=== PATIENT | female | born 1965 | race Caucasian/White ===

== ENCOUNTER 2018-07-27 16:51 | Emergency (ER) | payer MEDICARE ==
[~2018-07-27] VITALS: Ht 180.3 cm; Wt 46.7 kg
[~2018-07-27 16:51] MED LIST: AMIT25; BUDE6HFA; Bactrim Ds Tab1 EACH PO; HYDACE10B; KEFLEX PO; Norco 5-325 Ta1 EACH PO; OMEPRAZOLE DR 20 MG; PREG100; PROM25; Paxil40 MG; Percocet 5-3251 EACH PO; TRAZ50 PO; Zofran Odt4 MG SL
[2018-07-27 17:38] LABS: Source, Urine Clean Catch
[2018-07-27 17:48] LABS: Appearance, Urine Clear (Clear); Bilirubin, Urine Neg (Neg); Blood, Urine Neg (Neg); Color, Urine Yellow (P-Yellow); Glucose Qualitative, Urine Neg (Neg); Ketones, Urine Neg (Neg); Leukocyte Esterase, Urine 1+ (Neg); Nitrite, Urine Neg (Neg); Protein, Urine Neg (Neg); Urobilinogen, Urine NORM (Normal)
[2018-07-27 18:15] LABS: Squamous Epithelial Cells Mod /hpf (Few)
[2018-07-27 18:16] LABS: Bacteria Rare /hpf; Red Blood Cells, Urine Not Seen /hpf (0-2)
[2018-07-27] MEDS ORDERED: NYST237S MT (19:18)
[2018-07-27] MEDS ORDERED: Zovirax800 MG PO (19:18)
[2018-07-27] MEDS ORDERED: KETO10 PO (19:18)
== END 2018-07-27 19:29 | disposition home or self-care (01) ==
LOC: ER 16:51
PROVIDERS: Physician Assistant
DX: B00.2 Herpesviral gingivostomatitis and pharyngotonsillitis (principal); Z88.5 Allergy status to narcotic agent; Z88.0 Allergy status to penicillin; Z79.899 Other long term (current) drug therapy; F17.200 Nicotine dependence, unspecified, uncomplicated
CPT/HCPCS: 76770; 81001; 87086; 99284-25

== ENCOUNTER 2018-08-31 11:11 | Emergency (ER) | payer MEDICARE, OTHER ==
[~2018-08-31] VITALS: Ht 154.9 cm; Wt 52.2 kg
[~2018-08-31 11:11] MED LIST changes: +KETO10 PO; +NYST237S MT; -PREG100; +PREG300 PO; +Zovirax800 MG PO
[2018-08-31] MEDS ORDERED: Cymbalta60 MG PO (11:41)
[2018-08-31] MEDS ORDERED: Cleocin HCl300 MG PO (11:57)
[2018-08-31] MEDS ORDERED: Zovirax400 MG PO (11:57)
[2018-08-31] MEDS ORDERED: IBU800 MG PO (11:57)
== END 2018-08-31 11:59 | disposition home or self-care (01) ==
LOC: ER 11:11
DX: K04.7 Periapical abscess without sinus (principal); B00.2 Herpesviral gingivostomatitis and pharyngotonsillitis
CPT/HCPCS: 99282

== ENCOUNTER → 2019-11-07 | Outpatient (CLI) | payer MEDICARE, OTHER ==
[~2019-11-07] MED LIST changes: +Cleocin HCl300 MG PO; +Cymbalta60 MG PO; +IBU800 MG PO; +Zovirax400 MG PO
[2019-11-07 18:42] LABS: BASOPHILS ABSOLUTE AUTO 0.08 K/mm3 (0.00-0.23); BASOPHILS PERCENT AUTO 1 % (0-2); EOSINOPHILS ABSOLUTE AUTO 0.22 K/mm3 (0.00-0.68); EOSINOPHILS PERCENT AUTO 3 % (0-6); Hematocrit 41.7 % (33.0-51.0); Hemoglobin 12.8 g/dL (11.5-16.0); IMMATURE GRAN ABSOLUTE AUTO 0.02 K/mm3 (0.00-0.10); IMMATURE GRAN PERCENT AUTO 0 % (0-1); LYMPHOCYTES ABSOLUTE AUTO 2.17 K/mm3 (0.84-5.20); LYMPHOCYTES PERCENT AUTO 28 % (21-46); MONOCYTES ABSOLUTE AUTO 0.41 K/mm3 (0.16-1.47); MONOCYTES PERCENT AUTO 5 % (4-13); Mean Corpuscular HGB 29.4 pg (26.0-34.0); Mean Corpuscular HGB Conc 30.7 g/dL (31.5-36.5); Mean Corpuscular Volume 96 fL (80-100); Mean Platelet Volume 9.5 fL (9.1-12.4); NEUTROPHILS ABSOLUTE AUTO 4.84 K/mm3 (1.96-9.15); NEUTROPHILS PERCENT AUTO 63 % (41-73); Platelet Count 310 K/mm3 (150-400); RDW Coefficient Variation 14.1 % (11.7-14.2); RDW Standard Deviation 50.4 fL (35.1-46.3); Red Blood Cell Count 4.35 M/mm3 (3.80-5.20); White Blood Cell Count 7.74 K/mm3 (4.00-11.30)
[2019-11-07 18:52] LABS: Albumin, Blood 4.1 g/dL (3.4-5.0); Albumin/Globulin Ratio 1.1 (0.8-1.8); Bilirubin, Total 0.4 mg/dL (0.1-1.0); Bun/Creatinine Ratio 16.4 (12.0-20.0); Creatinine, Blood 1.22 mg/dL (0.40-1.00); Globulin, Blood 3.8 g/dL (2.2-4.0); Potassium, Blood 4.4 mmol/L (3.5-5.5); Total Protein, Blood 7.9 g/dL (6.4-8.2)
[2019-11-07 19:26] LABS: Lithium 0.63 mmol/L (0.60-1.20)
== END ==
LOC: LAB EV 18:35 → LAB SHORT 18:35
PROVIDERS: Emergency Medicine
DX: F31.9 Bipolar disorder, unspecified (principal)
CPT/HCPCS: 80053; 80178; 85025

== ENCOUNTER 2019-12-05 23:52 | Emergency (ER) | payer MEDICARE, OTHER ==
[~2019-12-05] VITALS: Ht 154.9 cm; Wt 65.8 kg
[2019-12-06 00:11] LABS: BASOPHILS ABSOLUTE AUTO 0.06 K/mm3 (0.00-0.23); BASOPHILS PERCENT AUTO 1 % (0-2); EOSINOPHILS PERCENT AUTO 3 % (0-6); Hematocrit 42.7 % (33.0-51.0); IMMATURE GRAN ABSOLUTE AUTO 0.02 K/mm3 (0.00-0.10); IMMATURE GRAN PERCENT AUTO 0 % (0-1); LYMPHOCYTES ABSOLUTE AUTO 2.91 K/mm3 (0.84-5.20); LYMPHOCYTES PERCENT AUTO 38 % (21-46); MONOCYTES ABSOLUTE AUTO 0.46 K/mm3 (0.16-1.47); MONOCYTES PERCENT AUTO 6 % (4-13); Mean Corpuscular HGB 28.6 pg (26.0-34.0); Mean Corpuscular HGB Conc 30.4 g/dL (31.5-36.5); Mean Corpuscular Volume 94 fL (80-100); Mean Platelet Volume 9.3 fL (9.1-12.4); NEUTROPHILS ABSOLUTE AUTO 4.05 K/mm3 (1.96-9.15); NEUTROPHILS PERCENT AUTO 53 % (41-73); Platelet Count 314 K/mm3 (150-400); RDW Coefficient Variation 12.9 % (11.7-14.2); RDW Standard Deviation 44.4 fL (35.1-46.3); Red Blood Cell Count 4.55 M/mm3 (3.80-5.20)
[2019-12-06 00:28] LABS: Source, Urine Clean Catch
[2019-12-06 00:30] LABS: Alanine Aminotransfer (ALT/SGP 27 U/L (12-78); Albumin, Blood 3.8 g/dL (3.4-5.0); Alk Phos 101 U/L (50-136); Anion Gap 3 mmol/L (6-16); Aspartate Aminotrans (AST/SGOT 23 U/L (12-37); Bilirubin, Total 0.5 mg/dL (0.1-1.0); Blood Urea Nitrogen 19 mg/dL (8-24); Bun/Creatinine Ratio 21.1 (12.0-20.0); CO2, Blood 31 mmol/L (21-32); Chloride, Blood 108 mmol/L (98-108); Ethanol (Alcohol), Blood, Med <3 mg/dL; Globulin, Blood 3.7 g/dL (2.2-4.0); Glomerular Filtration Rate >60 (60-); Glucose, Blood 111 mg/dL (70-99); Potassium, Blood 3.9 mmol/L (3.5-5.5); Salicylate <1.7 mg/dL (2.8-20.0); Sodium, Blood 142 mmol/L (136-145); Total Protein, Blood 7.5 g/dL (6.4-8.2)
[2019-12-06 00:33] LABS: Bilirubin, Urine Neg (Neg); Blood, Urine Neg (Neg); Glucose Qualitative, Urine Neg (Neg); Ketones, Urine Neg (Neg); Leukocyte Esterase, Urine Neg (Neg); Nitrite, Urine Neg (Neg); Protein, Urine Neg (Neg); Urobilinogen, Urine NORM (Normal)
[2019-12-06 00:34] LABS: Appearance, Urine Clear (Clear); Color, Urine Yellow (P-Yellow)
[2019-12-06 00:35] LABS: Acetaminophen, Random <2.0 ug/mL (10.0-30.0)
[2019-12-06 00:50] LABS: U Amphetamine Screen Not Detected; U Barbituate Screen Not Detected; U Benzodiazapine Screen Not Detected; U Buprenorphine Screen Not Detected; U Cannabinoids Screen Not Detected; U Cocaine Screen Not Detected; U Methadone Screen Not Detected; U Methamphetamine Screen Not Detected; U Opiates Screen Not Detected; U Oxycodone Screen Not Detected; U Phencyclidine Screen Not Detected; U Propoxyphene Screen Not Detected
== END 2019-12-06 02:51 | disposition home or self-care (01) ==
LOC: ER 23:52
PROVIDERS: Emergency Medicine
DX: R41.82 Altered mental status, unspecified (principal); F32.9 Major depressive disorder, single episode, unspecified; J44.9 Chronic obstructive pulmonary disease, unspecified; F41.0 Panic disorder [episodic paroxysmal anxiety]; Z88.0 Allergy status to penicillin; Z79.899 Other long term (current) drug therapy; F17.200 Nicotine dependence, unspecified, uncomplicated
CPT/HCPCS: 70450; 80053; 81003; 81025; 85025; 93005; 93010; 99284-25; G0480

== ENCOUNTER 2020-12-25 08:33 | Emergency (ER) | payer MEDICARE ==
[~2020-12-25] VITALS: Ht 154.9 cm; Wt 74.8 kg
[~2020-12-25 08:33] MED LIST changes: +AIRDUO RESPICL1 EAC4 INH; +ATEN25 PO; +Abilify2 MG PO; +CLON.5 PO; +Catapres0.2 MG PO; +LITH300C PO; +METPHE5 PO; +PREGABALIN150 MG PO; +PROM25 PO; +TIZA4 PO; +VENL25 PO
[2020-12-25] MEDS ORDERED: TRAZ50 PO (08:54)
[2020-12-25] MEDS ORDERED: ATOM60 PO (08:54)
[2020-12-25] MEDS ORDERED: SERT100 PO (08:54)
[2020-12-25] MEDS ORDERED: HYDPAM50 PO (08:54)
[2020-12-25 10:22] LABS: Source, Urine Clean Catch
[2020-12-25 10:43] LABS: Appearance, Urine Clear (Clear); Bilirubin, Urine Neg (Neg); Blood, Urine Neg (Neg); Color, Urine Yellow (P-Yellow); Glucose Qualitative, Urine Neg (Neg); Ketones, Urine Neg (Neg); Leukocyte Esterase, Urine 2+ (Neg); Nitrite, Urine Neg (Neg); Protein, Urine 2+ (Neg); Urobilinogen, Urine NORM (Normal)
[2020-12-25 10:47] LABS: Alanine Aminotransfer (ALT/SGP 18 U/L (12-78); Albumin, Blood 3.6 g/dL (3.4-5.0); Albumin/Globulin Ratio 0.9 (0.8-1.8); Alk Phos 100 U/L (50-136); Anion Gap 2 mmol/L (6-16); Aspartate Aminotrans (AST/SGOT 35 U/L (12-37); BASOPHILS ABSOLUTE AUTO 0.03 K/mm3 (0.00-0.23); BASOPHILS PERCENT AUTO 1 % (0-2); Bilirubin, Total 0.8 mg/dL (0.1-1.0); Blood Urea Nitrogen 18 mg/dL (8-24); CO2, Blood 30 mmol/L (21-32); Calcium, Blood 8.5 mg/dL (8.5-10.1); Chloride, Blood 105 mmol/L (98-108); Creatinine, Blood 0.69 mg/dL (0.40-1.00); EOSINOPHILS ABSOLUTE AUTO 0.19 K/mm3 (0.00-0.68); EOSINOPHILS PERCENT AUTO 4 % (0-6); Globulin, Blood 3.8 g/dL (2.2-4.0); Glomerular Filtration Rate >60 (60-); Glucose, Blood 94 mg/dL (70-99); Hematocrit 42.3 % (33.0-51.0); Hemoglobin 13.8 g/dL (11.5-16.0); IMMATURE GRAN ABSOLUTE AUTO 0.02 K/mm3 (0.00-0.10); IMMATURE GRAN PERCENT AUTO 0 % (0-1); LYMPHOCYTES ABSOLUTE AUTO 1.82 K/mm3 (0.84-5.20); LYMPHOCYTES PERCENT AUTO 40 % (21-46); MONOCYTES ABSOLUTE AUTO 0.29 K/mm3 (0.16-1.47); MONOCYTES PERCENT AUTO 6 % (4-13); Mean Corpuscular HGB 28.7 pg (26.0-34.0); Mean Corpuscular HGB Conc 32.6 g/dL (31.5-36.5); Mean Corpuscular Volume 88 fL (80-100); NEUTROPHILS ABSOLUTE AUTO 2.19 K/mm3 (1.96-9.15); NEUTROPHILS PERCENT AUTO 48 % (41-73); Potassium, Blood 4.7 mmol/L (3.5-5.5); RDW Coefficient Variation 13.9 % (11.7-14.2); RDW Standard Deviation 44.8 fL (35.1-46.3); Red Blood Cell Count 4.81 M/mm3 (3.80-5.20); Sodium, Blood 137 mmol/L (136-145); Total Protein, Blood 7.4 g/dL (6.4-8.2); White Blood Cell Count 4.54 K/mm3 (4.00-11.30)
[2020-12-25 10:49] LABS: Mean Platelet Volume 11.4 fL (9.1-12.4); Platelet Count 165 K/mm3 (150-400)
[2020-12-25 11:08] LABS: Mucus Mod (0-Heavy)
[2020-12-25 11:09] LABS: Red Blood Cells, Urine 0-2 /hpf (0-2); Squamous Epithelial Cells Mod /hpf (Few)
[2020-12-25 11:10] LABS: Bacteria Rare /hpf
[2020-12-25] MEDS ORDERED: NAPR500 PO (11:19)
== END 2020-12-25 11:40 | disposition home or self-care (01) ==
LOC: ER 08:33
PROVIDERS: Emergency Medicine
DX: M76.62 Achilles tendinitis, left leg (principal); G89.29 Other chronic pain; R10.9 Unspecified abdominal pain; F17.200 Nicotine dependence, unspecified, uncomplicated; Z79.899 Other long term (current) drug therapy
CPT/HCPCS: 73610; 80053; 81001; 85025; 87086; 99283-25

== ENCOUNTER 2021-06-01 15:15 | Inpatient (IN) | payer OTHER ==
[~2021-06-01] VITALS: Ht 154.9 cm; Wt 69.4 kg
[~2021-06-01 15:15] MED LIST changes: +ATOM60 PO; +HYDPAM50 PO; +NAPR500 PO; +SERT100 PO
[2021-06-01 16:19] LABS: Source, Urine Clean Catch
[2021-06-01 16:24] LABS: BASOPHILS ABSOLUTE AUTO 0.02 K/mm3 (0.00-0.23); BASOPHILS PERCENT AUTO 0 % (0-2); EOSINOPHILS ABSOLUTE AUTO 0.14 K/mm3 (0.00-0.68); EOSINOPHILS PERCENT AUTO 3 % (0-6); Hematocrit 42.6 % (33.0-51.0); Hemoglobin 13.8 g/dL (11.5-16.0); IMMATURE GRAN ABSOLUTE AUTO 0.01 K/mm3 (0.00-0.10); IMMATURE GRAN PERCENT AUTO 0 % (0-1); LYMPHOCYTES ABSOLUTE AUTO 1.82 K/mm3 (0.84-5.20); LYMPHOCYTES PERCENT AUTO 33 % (21-46); MONOCYTES ABSOLUTE AUTO 0.46 K/mm3 (0.16-1.47); MONOCYTES PERCENT AUTO 8 % (4-13); Mean Corpuscular HGB 29.7 pg (26.0-34.0); Mean Corpuscular HGB Conc 32.4 g/dL (31.5-36.5); Mean Corpuscular Volume 92 fL (80-100); Mean Platelet Volume 9.9 fL (9.1-12.4); NEUTROPHILS ABSOLUTE AUTO 3.11 K/mm3 (1.96-9.15); NEUTROPHILS PERCENT AUTO 56 % (41-73); Platelet Count 145 K/mm3 (150-400); RDW Standard Deviation 43.8 fL (35.1-46.3); Red Blood Cell Count 4.65 M/mm3 (3.80-5.20); White Blood Cell Count 5.56 K/mm3 (4.00-11.30)
[2021-06-01 16:29] LABS: Appearance, Urine Clear (Clear); Bilirubin, Urine Neg (Neg); Blood, Urine Neg (Neg); Color, Urine Yellow (P-Yellow); Glucose Qualitative, Urine Neg (Neg); Ketones, Urine Neg (Neg); Leukocyte Esterase, Urine 1+ (Neg); Nitrite, Urine Neg (Neg); Protein, Urine 1+ (Neg); Urobilinogen, Urine NORM (Normal)
[2021-06-01 16:45] LABS: Alanine Aminotransfer (ALT/SGP 22 U/L (12-78); Albumin, Blood 3.9 g/dL (3.4-5.0); Albumin/Globulin Ratio 1.2 (0.8-1.8); Alk Phos 78 U/L (50-136); Anion Gap 2 mmol/L (6-16); Aspartate Aminotrans (AST/SGOT 17 U/L (12-37); Bilirubin, Total 0.5 mg/dL (0.1-1.0); Blood Urea Nitrogen 18 mg/dL (8-24); Bun/Creatinine Ratio 27.5 (12.0-20.0); CO2, Blood 34 mmol/L (21-32); Calcium, Blood 9.1 mg/dL (8.5-10.1); Chloride, Blood 103 mmol/L (98-108); Creatinine, Blood 0.65 mg/dL (0.40-1.00); Globulin, Blood 3.2 g/dL (2.2-4.0); Glomerular Filtration Rate >60 (60-); Glucose, Blood 78 mg/dL (70-99); Potassium, Blood 4.2 mmol/L (3.5-5.5); Sodium, Blood 139 mmol/L (136-145); Total Protein, Blood 7.1 g/dL (6.4-8.2)
[2021-06-01 16:50] LABS: Bacteria Mod /hpf; Red Blood Cells, Urine Not Seen /hpf (0-2); Squamous Epithelial Cells Few /hpf (Few); White Blood Cells, Urine 0-2 /hpf (0-5)
[2021-06-01] MEDS ORDERED: BUSP5 PO (20:05)
[2021-06-01 20:25] LABS: Influenza A, PCR NEGATIVE (NEGATIVE); Influenza B, PCR NEGATIVE (NEGATIVE); Resp Syncytial Virus, PCR NEGATIVE (NEGATIVE); SARS-Cov-2 (COVID-19) PCR, MMC NEGATIVE (NEGATIVE)
--- NOTE | 2021-06-02 06:06 | NUR ---
VSS. LS C. PAIN TO L LOWER ABD QUADRANT-MANAGED W/ PRN PAIN MEDS. NPO. NGT IN PLACE, HOOKED TO WALL SUCTION. IV FLUIDS RUNNING. SBA TO BSC. RA 92% ON ADMIT. AT APPROX 0430, RA AT 82 % (PT STATES THIS IS A CHRONIC ISSUE), PT PLACED ON 2L O2 NC, O2 SAT UP TO 94%. SURGERY CONSULTED. WOULD LIKE HOME MEDS ORDERED, WILL PASS ON TO DAYSHIFT RN. NO ISSUES OVERNIGHT. WILL CONTINUE TO MONITOR
--- NOTE | 2021-06-02 18:36 | NUR ---
PATIENT IS CURRENTLY LYING IN BED WITH NO SIGNS OR SYMPTOMS ACUTE DISTRESS NOTED. CALL LIGHT AND WATER IN EASY REACH. PATIENT HAS A COUGH THAT IS PRODUCTIVE. NGT REMOVED THIS AM AT [address] ZAMUDIO. PATIENT TOLERATED WELL. BOWEL SOUNDS HYPOACTIVE. SUPPOSITORY AND MIRALAX GIVEN. PATIENT HAS HAD NO COMPLAINTS OF NAUSEA TODAY. MEDICATED FOR COMPLAINTS OF LLQ PAIN-SEE EMAR. WILL MONITOR.
--- NOTE | 2021-06-03 06:21 | NUR ---
VSS. +COUGH THROUGHOUT SHIFT. LS C. PHLEGM SOUNDS THOUGH ONLY IN THROAT. 2L O2 NC. SBA TO BSC. PT OCCASIONALLY APPEARS CONFUSED, WILL CALL OUR "MAMA, HELP ME". RN BEGAN ASKING IF SHE WAS OKAY AND IF PT KNEW WHERE SHE WAS, PT APPEARED TO BECOME IMMEDIATELY ORIENTED. +ORTEGA. DR MCDOWELL NOTIFIED AT 2124. ACETAMINOPHEN PRN ORDERED. GIVEN X1. NO BM. NO FLATUS PER PT. ABD SOFT. MINIMAL PAIN TO L LOWER ABD QUADRANT. PHYSICIAN AT BEDSIDE THIS AM. UPDATED PT ON POC TO MONITOR RETURN OF BOWEL FUNCTION AND CONTINUE CLEAR LIQUID DIET.
[2021-06-03] MEDS ORDERED: Acetaminophen325 M1 PO (09:41)
[2021-06-03] MEDS ORDERED: DOCU100 PO (09:41)
--- NOTE | 2021-06-03 09:59 | NUR ---
DISCHARGE: DISCHARGE INSTUCTIONS GIVEN TO PATIENT AT THIS TIME. PATIENT VERBALIZED UNDERSTANDING. PATIENT ENCOURAGED TO DRINK PLENTY OF FLUIDS, TAKE STOOL SOFTNERS ORDERED AND MAKE AND KEEP FOLLOW UP APPOINTMENTS. PATIENT HAS HAD BOWEL MOVEMENT THIS AM AND IN PASSING GAS. NO SIGNS OR SYPTOMS ACUTE DISTRESS NOTED. ABLE TO MAKE NEEDS AND WANTS KNOWN. WILL MONITOR.
== END 2021-06-03 10:00 | disposition home or self-care (01) | DRG 390 ==
LOC: ER 15:15 → SURS 15:16
PROVIDERS: Emergency Medicine; ADMIT Surgery
PROC: 0D9670Z Drainage of Stomach with Drainage Device, Via Natural or Artificial Opening (ICD-10-PCS; principal; 2021-06-01)
DX: K56.609 Unspecified intestinal obstruction, unspecified as to partial versus complete obstruction (principal); Z20.822 Contact with and (suspected) exposure to COVID-19; J44.9 Chronic obstructive pulmonary disease, unspecified; M79.7 Fibromyalgia; F32.A Depression, unspecified; F41.9 Anxiety disorder, unspecified; Z28.21 Immunization not carried out because of patient refusal; G89.29 Other chronic pain; F43.10 Post-traumatic stress disorder, unspecified; Z88.0 Allergy status to penicillin; Z79.899 Other long term (current) drug therapy; Z98.890 Other specified postprocedural states; Z87.891 Personal history of nicotine dependence
CPT/HCPCS: 0241U; 36415; 74177; 80053; 81001; 83690; 85025; 87086; 96365; 96375; 96376; 99285-25; A9270; G0378; J1170; J1650; J2270; J2405; J3480; J7030; Q9967

== ENCOUNTER 2022-01-13 10:53 | Emergency (ER) | payer MEDICARE, OTHER ==
[~2022-01-13] VITALS: Ht 154.9 cm; Wt 65.8 kg
[~2022-01-13 10:53] MED LIST changes: +Acetaminophen325 M1 PO; +BUSP5 PO; +CATAPRES0.1 MG PO; +DOCU100 PO; +PROP10
[2022-01-13] MEDS ORDERED: MELOXICAM5 MG (11:08)
[2022-01-13] MEDS ORDERED: LIDO700A20 TOP (13:19)
[2022-01-13] MEDS ORDERED: Prednisone20 MG PO (13:19)
== END 2022-01-13 13:43 | disposition home or self-care (01) ==
LOC: ER 10:53
DX: S39.012A Strain of muscle, fascia and tendon of lower back, initial encounter (principal); J44.9 Chronic obstructive pulmonary disease, unspecified; F17.290 Nicotine dependence, other tobacco product, uncomplicated; X58.XXXA Exposure to other specified factors, initial encounter
CPT/HCPCS: 72100

== ENCOUNTER 2022-01-15 19:10 | Emergency (ER) | payer MEDICARE, OTHER ==
[~2022-01-15] VITALS: Ht 154.9 cm; Wt 47.2 kg
[~2022-01-15 19:10] MED LIST changes: +LIDO700A20 TOP; +MELOXICAM5 MG; +Prednisone20 MG PO
== END 2022-01-15 22:16 | disposition home or self-care (01) ==
LOC: ER 19:10
DX: Z04.89 Encounter for examination and observation for other specified reasons (principal); J44.9 Chronic obstructive pulmonary disease, unspecified; Z87.891 Personal history of nicotine dependence; Z79.899 Other long term (current) drug therapy; W19.XXXA Unspecified fall, initial encounter
CPT/HCPCS: 70450

== ENCOUNTER 2022-01-19 12:08 | Inpatient (IN) | payer MEDICARE, OTHER ==
[~2022-01-19] VITALS: Ht 154.9 cm; Wt 74.6 kg
[2022-01-19 12:38] LABS: Source, Urine Straight Cath
[2022-01-19 12:42] LABS: Appearance, Urine Cloudy (Clear); Blood, Urine 3+ (Neg); Color, Urine Amber (P-Yellow); Glucose Qualitative, Urine Neg (Neg); Ketones, Urine Neg (Neg); Leukocyte Esterase, Urine 2+ (Neg); Nitrite, Urine Neg (Neg); Protein, Urine 2+ (Neg); Specific Gravity, Urine 1.015 (1.003-1.022); Urobilinogen, Urine 4+ (Normal)
[2022-01-19 12:45] LABS: Hematocrit 42.7 % (33.0-51.0); Hemoglobin 15.1 g/dL (11.5-16.0); Mean Corpuscular HGB 29.4 pg (26.0-34.0); Mean Corpuscular HGB Conc 35.4 g/dL (31.5-36.5); Mean Corpuscular Volume 83 fL (80-100); NRBC ABSOLUTE 0.36 K/mm3 (0.00-0.02); NRBC Auto 1.5 /100 WBC (0.0-0.2); Platelet Count 112 K/mm3 (150-400); RDW Coefficient Variation 13.3 % (11.7-14.2); RDW Standard Deviation 40.2 fL (35.1-46.3); Red Blood Cell Count 5.14 M/mm3 (3.80-5.20); White Blood Cell Count 24.17 K/mm3 (4.00-11.30)
[2022-01-19 12:52] LABS: CPK Creatine Kinase 451 U/L (26-193); Ethanol (Alcohol), Blood, Med <3 mg/dL; Salicylate 7.7 mg/dL (2.8-20.0)
[2022-01-19 12:52] LABS: Bilirubin, Urine 2+ (Neg)
[2022-01-19 12:54] LABS: Alanine Aminotransfer (ALT/SGP 43 U/L (12-78); Albumin, Blood 1.7 g/dL (3.4-5.0); Albumin/Globulin Ratio 0.4 (0.8-1.8); Alk Phos 124 U/L (50-136); Anion Gap 16 mmol/L (6-16); Aspartate Aminotrans (AST/SGOT 157 U/L (12-37); Bilirubin, Total 1.8 mg/dL (0.1-1.0); Blood Urea Nitrogen 113 mg/dL (8-24); Bun/Creatinine Ratio 49.1 (12.0-20.0); CO2, Blood 24 mmol/L (21-32); Calcium, Blood 8.5 mg/dL (8.5-10.1); Chloride, Blood 99 mmol/L (98-108); Globulin, Blood 4.5 g/dL (2.2-4.0); Glomerular Filtration Rate 24 (60-); Glucose, Blood 83 mg/dL (70-99); Potassium, Blood 3.5 mmol/L (3.5-5.5); Sodium, Blood 139 mmol/L (136-145); Total Protein, Blood 6.2 g/dL (6.4-8.2)
[2022-01-19 12:55] LABS: Acetaminophen, Random <2.0 ug/mL (10.0-30.0)
[2022-01-19 12:56] LABS: Bacteria Many /hpf; Red Blood Cells, Urine 0-2 /hpf (0-2); Squamous Epithelial Cells Rare /hpf (Few); Transitional Epithelial Cells Rare /hpf (0-Rare)
[2022-01-19 13:13] LABS: BAND PERCENT MAN 5 % (0-8); BASOPHILS PERCENT MAN 0 % (0-2); EOSINOPHILS PERCENT MAN 0 % (0-6); LYMPHOCYTES % ATYPICAL MANUAL 2 % (0-0); LYMPHOCYTES PERCENT MAN 10 % (21-46); MONOCYTES PERCENT MAN 5 % (4-13); NEUTROPHILS ABSOLUTE MAN 20.06 K/mm3 (1.96-9.15); SEG NEUTROPHILS PERCENT MAN 78 % (41-73); TOTAL CELLS COUNTED 100
[2022-01-19 13:16] LABS: U Amphetamine Screen DETECTED; U Barbituate Screen Not Detected; U Benzodiazapine Screen Not Detected; U Buprenorphine Screen DETECTED; U Cannabinoids Screen Not Detected; U Cocaine Screen Not Detected; U Methadone Screen Not Detected; U Methamphetamine Screen DETECTED; U Opiates Screen Not Detected; U Oxycodone Screen Not Detected; U Phencyclidine Screen Not Detected; U Propoxyphene Screen Not Detected
[2022-01-19 13:33] LABS: Influenza A, PCR NEGATIVE (NEGATIVE); Influenza B, PCR NEGATIVE (NEGATIVE); Resp Syncytial Virus, PCR NEGATIVE (NEGATIVE); SARS-Cov-2 (COVID-19) PCR, MMC NEGATIVE (NEGATIVE)
[2022-01-19 13:38] LABS: Creatine Kinase MB 16.5 ng/mL (0.0-3.6); Creatine Kinase MB Index 3.7 (0.0-4.0)
[2022-01-20 01:08] LABS: PCO2 Arterial 67.5 mmHg (35-45); PO2 Arterial 145 mmHg (80-100)
[2022-01-20 01:11] LABS: pH Blood Arterial 7.12 (7.35-7.45)
[2022-01-20 02:35] LABS: PCO2 Arterial 54.6 mmHg (35-45); PO2 Arterial 74.4 mmHg (80-100)
[2022-01-20 02:38] LABS: pH Blood Arterial 7.21 (7.35-7.45)
[2022-01-20 05:13] LABS: Hematocrit 32.5 % (33.0-51.0); Hemoglobin 10.7 g/dL (11.5-16.0); Mean Corpuscular HGB 29.1 pg (26.0-34.0); Mean Corpuscular HGB Conc 32.9 g/dL (31.5-36.5); NRBC ABSOLUTE 0.06 K/mm3 (0.00-0.02); NRBC Auto 0.5 /100 WBC (0.0-0.2); Platelet Count 70 K/mm3 (150-400); RDW Coefficient Variation 14.4 % (11.7-14.2); RDW Standard Deviation 45.8 fL (35.1-46.3); Red Blood Cell Count 3.68 M/mm3 (3.80-5.20); White Blood Cell Count 10.93 K/mm3 (4.00-11.30)
[2022-01-20 05:15] LABS: Mean Corpuscular Volume 88 fL (80-100)
[2022-01-20 05:32] LABS: Magnesium, Blood 2.6 mg/dL (1.6-2.4)
--- NOTE | 2022-01-20 05:34 | NUR ---
SHIFT SUMMARY ASSUMED CARE OF PT AT 1900. PT WAS YELLING OUT AND SAYING NONSENSICAL SENTENCES AT THE START OF SHIFT. PT WAS ON 4LNC. LUNG SOUNDS COARSE. HEART SOUNDS REGULAR. BP WAS VERY SOFT. PT BECAME MORE LEHTARGIC AND STOPPED CRYING OUT. RESIDENT CHARBEL NOTIFED AND ORDERED BOLUS. PT RESPONDED WELL BUT MAP DROPPED TO 60S AGAIN AFTER BOLUS. CHARBEL ORDERED SECOND 1000 BOLUS; IN WHICH THE SAME THING HAPPENED. AFTER THIRD BOLUS PT MAP WAS MAINTAINING IN THE 70'S BUT PT REMAINED VERY CONFUSED AND CRYING OUT. PT OXYGEN NEEDS INCREASED TO 10L HIGHFLOW. RT THOUGHT TO CHECK ABG. PH CAME BACK CRITICAL AND BIPAP WAS STARTED. PT STILL CONTINUED TO CRY OUT BUT WAS ABLE TO USE BEDPAN TO VOID AND TOLD STAFF SHE HAD A BM. PT IS MORE ALERT THIS AM AND ABLE TO SPEAK SENSICAL SENTENCES AND BE REDIRECTED. PT ASKED TO TAKE OFF BIPAP BUT WAS EDUCATED ABOUT CONTINUATION. PT HANDS ARE SWOLLEN AND RED, HOT TO TOUCH. PT ASMITTED AT START OF SHIFT THAT HER L HAND WAS THE SITE OF HER IV DRUG INJECTION. PT KNEES AND COCCYX RED BUT BLANCHABLE. PT HAS WEAK PULSES IN FEET.
[2022-01-20 05:44] LABS: Albumin/Globulin Ratio 0.6 (0.8-1.8); Bilirubin, Total 1.5 mg/dL (0.1-1.0); Bun/Creatinine Ratio 61.2 (12.0-20.0); Creatinine, Blood 1.6 mg/dL (0.40-1.00); Globulin, Blood 3.4 g/dL (2.2-4.0); Potassium, Blood 2.9 mmol/L (3.5-5.5); Total Protein, Blood 5.4 g/dL (6.4-8.2)
[2022-01-20 05:49] LABS: Calcium, Blood 6.5 mg/dL (8.5-10.1)
[2022-01-20 06:05] LABS: BAND PERCENT MAN 21 % (0-8); BASOPHILS PERCENT MAN 0 % (0-2); EOSINOPHILS PERCENT MAN 1 % (0-6); LYMPHOCYTES ABSOLUTE MAN 0.32 K/mm3 (0.84-5.20); LYMPHOCYTES PERCENT MAN 3 % (21-46); METAMYELOCYTE PERCENT MAN 1 % (0-0); MONOCYTES PERCENT MAN 1 % (4-13); MYELOCYTE ABSOLUTE MAN 0.43 K/mm3 (0.00-0.00); MYELOCYTE PERCENT MAN 4 % (0-0); NEUTROPHILS ABSOLUTE MAN 9.83 K/mm3 (1.96-9.15); SEG NEUTROPHILS PERCENT MAN 69 % (41-73); TOTAL CELLS COUNTED 100
[2022-01-20 07:10] LABS: PCO2 Arterial 53.9 mmHg (35-45); PO2 Arterial 89.7 mmHg (80-100)
[2022-01-20 07:12] LABS: pH Blood Arterial 7.22 (7.35-7.45)
[2022-01-20 07:43] LABS: Vancomycin, Random 27.4 ug/mL
--- NOTE | 2022-01-20 11:48 | NUR ---
AM NOTE: PATIENT OPENING EYES UPON PAINFUL STIMULI AND SOUND. PERRLA WITH SLUGGISH PUPIL REACTION. MOANING OUT AND SATING NONSENSICAL STATEMENTS AT TIMES. ABLE TO MAKE KNOWN WHEN SHE HAS TO GO TO THE BATHROOM. NOT USING CALL LIGHT. PALPABLE STRONG PULSES. WEAK ALL OVER, NEEDING HELP TURNING IN BED, NOT ABLE TO FOLLOW INSTRUCTIONS WHEN TURNING OR CHANGING. Q2 TURNING AND NEEDED. BIPAP IN PLACE SETTINGS 16/8 AND 30% FIO2 SATING MID 90'S. LUNGS SOUNDING CLEAR AND COARSE. OCCASIONAL COUGH. Q4 ORAL CARE AND NEEDED. PATIENT NOT AWAKE AND ALERT ENOUGH TO BE SAFELY EATING OR DRINKING. USING BED JORDAN NEEDED. INCONTINENT EPISODE THIS AM. ATTENDS IN PLACE. TELE SHOWING SINUS RHYTHM WITH HR 60-70'S. BP ON SOFTER SIDE. NS INFUSING AT 100 ML/HR. KCL INFUSING WELL. HEART SOUNDS DISTANT. SKIN OVERALL PALE WITH REDNESS TO BILATERAL KNEES, COCCYX AND RIGHT BREAST. LARGE AMOUNT OF BRUISING TO RIGHT BREAST WITH RED SCRATCH LIKE DIAZ. LEFT HAND RED/WARM/SWOLLEN PER PLANT GUARD, PATIENT STATES SHE INJECTED METH AT THIS LOCATION. BILATERAL HANDS AND FEET EDEMATOUS. SLEEPING AT THIS TIME. WILL CONTINUE TO MONITOR.
--- NOTE | 2022-01-20 12:28 | NUR ---
UPDATE: SPOKE WITH DR. HEWITT REGARDING PATIENT AND PROVIDED UPDATE ON THIS RN CONCERNS WITH AGB/MENTATION, LEFT HAND REDNESS/SWELLING/WARMTH, AND POSSIBLE NEED FOR DORAN. NO NEW ORDERS FOR THIS RN AT THIS TIME. PATIENT SLEEPING WITH BIPAP IN PLACE. BP REMAINS ON SOFTER SIDE. Q2 TURNING AND NEEDED. PATIENT NOT ALERT ENOUGH TO SAFELY EAT LUNCH AT THIS TIME. LUNCH HELD. Q4 ORAL CARE AND NEEDED.
--- NOTE | 2022-01-20 12:40 | NUR ---
ECHO COMPLETED, DR. HEWITT UPDATED BY MERCHANDISE FLOW TEAM MEMBER. WILL MONITOR FOR ECHO RESULTS.
--- NOTE | 2022-01-20 13:45 | NUR ---
DR. HEWITT BY TO SEE PATIENT THIS AFTERNOON. NO NEW ORDERS FOR THIS RN TO PLACE. PATIENT WAKING UP WITH TURNS AND YELLING OUT. REQUESTING WATER. THIS RN GAVE PATIENT SMALL SIP OF WATER VIA SPOON WITH DR. HEWITT PERMISSION, AND PATIENT WAS NOT ABLE TO HOLD WATER IN MOUTH, NOT SAFE TO EAT OR DRINK AT THIS TIME DUE TO MENTATION AND ASPIRATION RISK. ORAL CARE DONE.
[2022-01-20 16:41] LABS: PCO2 Arterial 46.2 mmHg (35-45); PO2 Arterial 74.5 mmHg (80-100)
[2022-01-20 16:43] LABS: pH Blood Arterial 7.25 (7.35-7.45)
--- NOTE | 2022-01-20 18:19 | NUR ---
SHIFT SUMMARY: SEE PREVIOUS NOTE FOR UPDATES. NO CHANGE IN MENTATION PATIENT STILL LETHARGIC AND CONFUSED. WAKES TO SOUND AND PATIENT CARE. MOANING AT TIMES. BIPAP REMAINS IN PLACE WITH SETTINGS 26/8 AND 30% FIO2. 16[address] ABG RES[address] INTO DR. HEWITT, ORDERS TO CALL RESPIRATORY TO ASK IF THEY CAN CHANGE SETTINGS TO POSSIBLE BLOW OF MORE CO2. INGRID FROM RESPIRATORY CALLED. NO CHANGES TO TELE. BP REMAINS SOFT WITH MAP ABOVE 65. ATTENDS IN PLACE WITH Q2 TURNING AND NEEDED. THIS RN AND 2ND RN ATTEMPT TO PLACE DORAN, UNABLE TO PLACE DORAN AT THIS TIME. PATIENTS URINE IS DARK/BHAVESH/CLOUDY. USED BED JORDAN X1 THIS SHIFT. NS INFUSING AT 100 ML/HR. REMAINED NPO DUE TO MENTATION, PATIENT NOT SAFE TO SWALLOW AT THIS TIME. BED ALARM REMAINS IN PLACE. CALL LIGHT IN REACH. PATIENT SLEEPING AT THIS TIME.
[2022-01-20 18:31] LABS: Vancomycin, Random 18.7 ug/mL
[2022-01-20 19:24] LABS: Bun/Creatinine Ratio 71.9 (12.0-20.0); Creatinine, Blood 1.21 mg/dL (0.40-1.00); Potassium, Blood 3.8 mmol/L (3.5-5.5)
[2022-01-21 04:54] LABS: Hematocrit 33.3 % (33.0-51.0); Hemoglobin 11.3 g/dL (11.5-16.0); Mean Corpuscular HGB 29.5 pg (26.0-34.0); Mean Corpuscular HGB Conc 33.9 g/dL (31.5-36.5); Mean Corpuscular Volume 87 fL (80-100); NRBC Auto 0.8 /100 WBC (0.0-0.2); Platelet Count 62 K/mm3 (150-400); RDW Coefficient Variation 14.9 % (11.7-14.2); RDW Standard Deviation 47.1 fL (35.1-46.3); Red Blood Cell Count 3.83 M/mm3 (3.80-5.20); White Blood Cell Count 12.29 K/mm3 (4.00-11.30)
[2022-01-21 05:01] LABS: PCO2 Arterial 48.8 mmHg (35-45); pH Blood Arterial 7.28 (7.35-7.45)
[2022-01-21 05:05] LABS: Albumin, Blood 1.8 g/dL (3.4-5.0); Albumin/Globulin Ratio 0.4 (0.8-1.8); Bilirubin, Total 1.1 mg/dL (0.1-1.0); Bun/Creatinine Ratio 73.5 (12.0-20.0); Calcium, Blood 7.9 mg/dL (8.5-10.1); Creatinine, Blood 1.02 mg/dL (0.40-1.00); Globulin, Blood 4.1 g/dL (2.2-4.0); Total Protein, Blood 5.9 g/dL (6.4-8.2)
[2022-01-21 06:17] LABS: BAND PERCENT MAN 46 % (0-8); BASOPHILS PERCENT MAN 0 % (0-2); EOSINOPHILS PERCENT MAN 0 % (0-6); LYMPHOCYTES ABSOLUTE MAN 0.98 K/mm3 (0.84-5.20); LYMPHOCYTES PERCENT MAN 8 % (21-46); MONOCYTES ABSOLUTE MAN 0.24 K/mm3 (0.16-1.47); MONOCYTES PERCENT MAN 2 % (4-13); MYELOCYTE ABSOLUTE MAN 0.24 K/mm3 (0.00-0.00); MYELOCYTE PERCENT MAN 2 % (0-0); NEUTROPHILS ABSOLUTE MAN 10.81 K/mm3 (1.96-9.15); SEG NEUTROPHILS PERCENT MAN 42 % (41-73); TOTAL CELLS COUNTED 100
--- NOTE | 2022-01-21 06:18 | NUR ---
SHIFT SUMMARY PT'S MENTATION SHIFTING UP AND DOWN T/O SHIFT. PT ALERT AT TIMES AND MAKES SOME Y/N COMMENTS, OTHERTIMES JUST MOANING. PT IN SR. ON 4L OR BIPAP, STARTED AT 16/8 30%, NOW 18/8 30% DUE TO PH 7.28. INCONTINENT, PUREWICK PLACED, DORAN NOT ABLE TO BE OBTAINED. NO BM. PT REMAINS NPO DUE TO ASP RISK. ORAL CARE BEING COMPLETED. FLUIDS STOPPED DUE TO RISING NA. PT BEING TURNED. BED ALARM ON.
[2022-01-21 17:10] LABS: Base Excess Venous -4.8 mmol/L; Bicarbonate Venous 20.6 mmol/L (24.0-30.0); PCO2 Venous 41.7 mmHg (38-42); pH Blood Venous 7.32 (7.34-7.37)
--- NOTE | 2022-01-21 18:18 | NUR ---
SHIFT SUMMARY PT AWAKE MOST OF SHIFT YELLING OUT INCOHERENTLY. PT ATIMES YELLS OUT "NO" OR "OWW" BUT UNABLE TO LET NEEDS BE KNOWN. PT HAD BRIEF PERIOD OF ALMOST COMPLETE SENTENCES AROUND NOON, REST OF SHIFT PT ONLY SHAKING HED NO WHEN ASKED ANYTHING. PT TRACKS SOUNDS WHEN TALKING TO HER. PT HAD TEMP OF 100.6 AROUND 1600, TYLENOL 325 SUPOSITORY GIVEN PER ORDERS AND ICE PACKS IN PLACE. PT WAS ON BIPAP AT BEGINNING OF SHIFT, SWITHED TO NC BY RT DUE TO PT FIGHTING BIPAP, SATS >90% ON 3L NC. PUREWICK IN PLACE.
--- NOTE | 2022-01-21 19:52 | NUR ---
blister & open skin on right lower back noted at shift change skin assessment w/an baugh RN made aware.
[2022-01-22 03:42] LABS: Hematocrit 30.5 % (33.0-51.0); Hemoglobin 10.6 g/dL (11.5-16.0); Mean Corpuscular HGB 29.1 pg (26.0-34.0); Mean Corpuscular HGB Conc 34.8 g/dL (31.5-36.5); Mean Corpuscular Volume 84 fL (80-100); NRBC ABSOLUTE 0.12 K/mm3 (0.00-0.02); NRBC Auto 0.9 /100 WBC (0.0-0.2); Platelet Count 64 K/mm3 (150-400); RDW Coefficient Variation 15.1 % (11.7-14.2); RDW Standard Deviation 45.5 fL (35.1-46.3); Red Blood Cell Count 3.64 M/mm3 (3.80-5.20); White Blood Cell Count 13.77 K/mm3 (4.00-11.30)
[2022-01-22 04:02] LABS: Albumin, Blood 1.7 g/dL (3.4-5.0); Albumin/Globulin Ratio 0.4 (0.8-1.8); Bilirubin, Total 0.7 mg/dL (0.1-1.0); Bun/Creatinine Ratio 63.4 (12.0-20.0); Calcium, Blood 7.8 mg/dL (8.5-10.1); Creatinine, Blood 1.12 mg/dL (0.40-1.00); Globulin, Blood 4.4 g/dL (2.2-4.0); Potassium, Blood 3.8 mmol/L (3.5-5.5); Total Protein, Blood 6.1 g/dL (6.4-8.2)
[2022-01-22 04:10] LABS: BAND PERCENT MAN 6 % (0-8); BASOPHILS PERCENT MAN 0 % (0-2); EOSINOPHILS PERCENT MAN 0 % (0-6); LYMPHOCYTES ABSOLUTE MAN 0.96 K/mm3 (0.84-5.20); LYMPHOCYTES PERCENT MAN 7 % (21-46); METAMYELOCYTE ABSOLUTE MAN 0.41 K/mm3 (0.00-0.00); METAMYELOCYTE PERCENT MAN 3 % (0-0); MONOCYTES ABSOLUTE MAN 0.55 K/mm3 (0.16-1.47); MONOCYTES PERCENT MAN 4 % (4-13); NEUTROPHILS ABSOLUTE MAN 11.84 K/mm3 (1.96-9.15); SEG NEUTROPHILS PERCENT MAN 80 % (41-73); TOTAL CELLS COUNTED 100
--- NOTE | 2022-01-22 04:14 | NUR ---
CALLED AND UPDATED DR. MCDOWELL ON GRAM STAIN RESULTS
--- NOTE | 2022-01-22 05:12 | NUR ---
PT HAD BRIEF PERIODS OF REST OVERNIGHT. WHILE AWAKE YELLING. UNABLE TO REORIENT. TRACKS SOUND. PUPIL EQUAL REACTIVE TO LIGHT. WITHDRAWS FROM PAIN. NO COMMANDS FOLLOWED. ON BIPAP OVERNIGHT. INCONTINENT OF URINE. PERICARE PERFORMED WITH UNIT REMOTE SENSING ENGINEER. PURE WICK CHANGED. BONY PROMINENCES PROTECTED AND OFFLOADED.
--- NOTE | 2022-01-22 07:19 | NUR ---
ASSUMED CARE: PT RESETING QUIETLY ON 3L NC AT THIS TIME. NSR IN 90S ON TELE. NO ACUTE NEEDS OR CONCERNS AT THIS TIME.
--- NOTE | 2022-01-22 07:43 | NUR ---
RN WENT TO BEDSIDE TO PERFORM HEAD TO TOE ASSESSMENT AND PT BEGAN CALLING OUT. ATTEMPTED TO REORIENT AND LET HER KNOW THAT STAFF WAS WITH HER AND ASKED WHAT SHE NEEDED BUT UNABLE TO REORIENT. PT KEEPS CALLING OUT. UNABLE TO ANSWER QUESTIONS
--- NOTE | 2022-01-22 08:56 | NUR ---
DRS CAME TO SEE PT AND AWARE OF PT'S LACK OF ORIENTATION AND YELLING. RELAYED THAT STAFF STATE SHE HAS BEEN DOING THIS THE LAST FEW DAYS. RELAYED THAT ON THURSDAY WHEN SHE ARRIVED SHE WAS ANSWERING SOME QUESTIONS APPROPRIATELY. REVIEWED BLOOD GAS AND ASKED IF THEY WANTED TO REPEAT ONE. DRS INSTRUCTED TO LEAVE PT OFF BIPAP AND THEY WOULD ORDER ONE WHILE PT WAS OFF MASK
--- NOTE | 2022-01-22 11:26 | NUR ---
DR Brownlee PLACED ORDER FOR ZACHARIAH. CALLED HER TO CLARIFY IF SHE HAS SPOKEN WITH CARDIOLOGY YET. DR Brownlee STATES SHE WILL CONTACT CARDIOLOGY TO DETERMINE IF TEST CAN BE DONE AT THIS TIME.
--- NOTE | 2022-01-22 11:50 | NUR ---
PT'S CALLED AND ASKED FOR UPDATE. DUE TO HIPAA LAWS AND PT'S INABILITY TO CONSENT, WAS UNABLE TO GIVE ADEQUATE UPDATE. WAS ANGRY AT STAFF. INFORMED HIM THAT DUE TO LEGALITY, MOTHER IS LISTED SO WE CAN GIVE HER INFORMATION AND IF SHE CALLS FOR UPDATES HE CAN GET THEM FROM HER.
--- NOTE | 2022-01-22 13:27 | NUR ---
CALL TO DR HEWITT DUE TO CT ORDERED AND PT AWOKE AND IS AGITATED, YELLING, WHIPPING HEAD AROUND. ASKED FOR FURTHER SEDATION MEDICATIONS TO ASSIST WITH PT GETTING COMPLETE SCAN. CALLED BACK AND STATES HE WILL ORDER 1 TIME DOSE OF MED FOR SCAN. DR PAYNE PALLIATIVE CARE CONSULT FOR GOALS OF CARE DISCUSSION. DISCUSSED WITH PALLIATIVE CARE AND WILL CONTACT THEM WHEN FAMILY ARRIVES.
--- NOTE | 2022-01-22 14:06 | NUR ---
MEDICAL STUDENT CAME TO SEE PT AND WAS MADE AWARE THAT PT HAS NOT EATEN IN SEVERAL DAYS AND IS NPO FOR SPEECH EVAL. STATES HE WILL SPEAK WITH DR HEWITT REGARDING NEED FOR IV NUTRITION
--- NOTE | 2022-01-22 14:39 | NUR ---
As walk down the hallway of [facility], I hear what I think is a small child yelling. I ask RN Alejandra about the noise and she explains about pt's decline to the state that I hear coming through the door to the pt's rm. I visit pt who stops yelling as I introduce myself and then starts shaking her head "no" when I ask her what all the fussing is about. I ask about her family and friends and about her life outside of the hospital and pt starts back in with the yelling. Every communication after that was my voice softly trying to speak and her yelling, Stopping only to take a breath. I provide empathic care and a calming presence with no apparent effect on pt. I will continue to remain available.
[2022-01-22 15:30] LABS: Base Excess Venous -1.6 mmol/L; Bicarbonate Venous 22.9 mmol/L (24.0-30.0); PCO2 Venous 47.2 mmHg (38-42); pH Blood Venous 7.32 (7.34-7.37)
--- NOTE | 2022-01-22 15:45 | NUR ---
PT'S MOTHER CAME TO SEE PT. PALLIATIVE CARE AT BEDSIDE
--- NOTE | 2022-01-22 16:26 | NUR ---
Spoke with Primary KARIN Roberts and Dr Valadez. Reviewed plan of care and discussed concerns. Pt resting in bed with her eyes closed. Pt remains with her eyes closed throughout visit. Pt's mother Angelica at bedside. Offered active listening as Angleica reports Pt lives with her. She reports prior to January 13 Pt was having no issues and independent of her ADLs when suddenly she starting experiencing significant muscle weakness struggling with keeping her head up and having falls. Angelica reports Pt is but her and her are . She also reports Pt has 2 adult daughters and has grandchildren. Youngest daughter will call on occasion to check in on the Pt and the oldest has been estranged for quite some time. 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 Angelica states that Pt's is a good person and should be Pt's decision maker for any future decisions that may need to be made. Engaged in gentle education on disease process including trajectory. Discussed the importance for family and Pt to have plans in place for the future as disease progresses. Brief discussion regarding plan to speak with Pt's spouse regarding Pt's wishes for code status. Continued theapeutic visit and answered questions. Dr Valadez into to examine Pt and to discuss plan of care with Angelica. Called and spoke with Pt's Bony. Reviewed plan of care and engaged in therapeutic discussion regarding advanced care planning and wishes for code status. Gentle education on life sustaining treatments including risk factors and implications of CPR. Bony reports being unsure of Pt's wishes regarding code status as they never had this discussion. Bony reports plan to discuss further with family regarding code status. Bony requests phone call from for update. Bony expresses appreciation and reports no other concerns at this time. Palliative Care will F/U with family for supportive and therapeutic visits. Bony Deng [phone]
--- NOTE | 2022-01-22 17:47 | NUR ---
SHIFT SUMMARY: DRS HAD A MEETING WITH PT AND HER MOTHER TODAY. DISCUSSED CURRENT PLANS OF CARE AND PLANS FOR HEAD AND ABDOMINAL CT TOMORROW TO START SEARCHING FOR FURTHER SOURCES OF INFECTION. PALLIATIVE CARE CALLED TO SPEAK WITH PT'S . PER MOTHER, IS DECISION MAKER. DR MATTA CAME TO SEE PT AND GAVE RECOMMENDATIONS TO RESIDENTS. PLAN FOR DIETITIAN CONSULT FOR PERIPHERAL NUTRITION. CURRENTLY ON D5 FOR HYPERNATREMIA. PT CONTINUES TO HOLLER OUT AND UNABLE TO REORIENT. ZYPREXA GIVEN PRN THIS SHIFT
[2022-01-23 04:47] LABS: Hematocrit 30.6 % (33.0-51.0); Hemoglobin 10.3 g/dL (11.5-16.0); Mean Corpuscular HGB Conc 33.7 g/dL (31.5-36.5); Mean Corpuscular Volume 86 fL (80-100); NRBC ABSOLUTE 0.12 K/mm3 (0.00-0.02); NRBC Auto 0.8 /100 WBC (0.0-0.2); Platelet Count 91 K/mm3 (150-400); RDW Coefficient Variation 15.7 % (11.7-14.2); RDW Standard Deviation 48.8 fL (35.1-46.3); Red Blood Cell Count 3.55 M/mm3 (3.80-5.20); White Blood Cell Count 15.99 K/mm3 (4.00-11.30)
[2022-01-23 05:05] LABS: Albumin, Blood 1.6 g/dL (3.4-5.0); Albumin/Globulin Ratio 0.3 (0.8-1.8); Bilirubin, Total 0.6 mg/dL (0.1-1.0); Bun/Creatinine Ratio 52.9 (12.0-20.0); Calcium, Blood 7.7 mg/dL (8.5-10.1); Creatinine, Blood 1.38 mg/dL (0.40-1.00); Globulin, Blood 4.7 g/dL (2.2-4.0); Potassium, Blood 3.9 mmol/L (3.5-5.5); Total Protein, Blood 6.3 g/dL (6.4-8.2)
[2022-01-23 05:18] LABS: BAND PERCENT MAN 10 % (0-8); BASOPHILS PERCENT MAN 0 % (0-2); EOSINOPHILS PERCENT MAN 0 % (0-6); LYMPHOCYTES ABSOLUTE MAN 1.75 K/mm3 (0.84-5.20); LYMPHOCYTES PERCENT MAN 11 % (21-46); METAMYELOCYTE ABSOLUTE MAN 0.31 K/mm3 (0.00-0.00); METAMYELOCYTE PERCENT MAN 2 % (0-0); MONOCYTES ABSOLUTE MAN 0.47 K/mm3 (0.16-1.47); MONOCYTES PERCENT MAN 3 % (4-13); MYELOCYTE ABSOLUTE MAN 0.31 K/mm3 (0.00-0.00); MYELOCYTE PERCENT MAN 2 % (0-0); NEUTROPHILS ABSOLUTE MAN 13.11 K/mm3 (1.96-9.15); SEG NEUTROPHILS PERCENT MAN 72 % (41-73); TOTAL CELLS COUNTED 100
--- NOTE | 2022-01-23 05:42 | NUR ---
SHIFT SUMMARY PT MOANS AND YELLS OUT. DOES NOT APPEAR TO BE IN PAIN OR DISCOMFORT. WILL REACT TO TOUCH. DOES NOT VERBALIZE, BESIDES SAYING "OK" AND "NO" ONCE EACH DURING THE NIGHT. ZYPREXA USED PRN WITH SOME RELIEF FOR PT MOANING. AFEBRILE. HR SR-ST 90-100'S. BP STABLE. ON 3L SATS OVER 92%. ON BIPAP FOR A FEW HRS MUCH PT COULD TOLERATE. PUREWICK IN PLACE DRAINING DARK COLORED URINE. BED IN LOW POSITION, WILL CONTINUE TO MONITOR
--- NOTE | 2022-01-23 07:30 | NUR ---
ASSUMED CARE: NIGHT RN REPORTS THAT CT CALLED TO SCHEDULE AM TEST. ENTERED ROOM TO PREMEDICATE WITH A DOSE OF ZYPREXA. PT CONTINUES TO CALL OUT, STARE OFF IN SPACE, AND IS NOT REORIENTABLE OR REDIRECTABLE. SINUS TACH ON TELE IN THE 1-TEENS. SATTING MID 90S ON 2L.
--- NOTE | 2022-01-23 08:22 | NUR ---
TRANSPORTER CAME TO COLLECT PT AND REPORTED THAT ONLY HEAD CT WAS ORDERED. CALLED DR HEWITT TO SEE IF ABDOMINAL SHOULD BE DONE WELL. CALLED BACK AND SAID TO RUN IT. PT WENT TO CT AND CT CALLED THAT ORDER WAS STILL NOT ENTERED. BLOOD BANK WORKER CALLED AND ENTERED ORDERS. CT CALLED BACK AND SAID THEY NEEDED W/O CONTRAST DUE TO PT GETTING CONTRAST YESTERDAY. CT CALLED DR HEWITT AND CANCELLED ORDER DUE TO PT'S KIDNEY FUNCTION WITH PLANS TO OBTAIN TEST AT A LATER TIME. PT RETURNED TO ROOM. APPEARS COMFORTABLE AT THIS TIME
--- NOTE | 2022-01-23 08:24 | NUR ---
DR MATTA CAME TO SEE PT AFTER RETURN FROM CT. UPON EXAM, DR FOUND THAT PT'S RIGHT TOES WERE PURPLE AT TIPS AND DUSKY, WELL BALL OF FOOT WHICH IS A CHANGE FROM YESTERDAY. AND COORDINATOR DOPPLERED AND FOUND BILATERAL PEDAL PULSES.
--- NOTE | 2022-01-23 09:01 | NUR ---
PT'S TWO SISTERS AND DAUGHTER ARE AT BEDSIDE WITH DRS AND PALLIATIVE CARE
--- NOTE | 2022-01-23 10:46 | NUR ---
Joint visit this AM with Dr Osborn, Dr Valadez, this PC RN and family in Pt's room. Pt remains significantly confused yelling out. Pt other rhodes does not respond verbaly to questions. Pt's oldest daughter Mini, Sister Radha, sister Nilsa at bedside. MDs discuss Pt condition and plan of care. Comfort Care discussed as an option. Active listening and questions answered. Concerns validated. Family is requesting comfort care and is agreeable for this PC RN to relay preference to Pt's Bony who is Pt's legal decision maker. Called and spoke with Pt's Bony. Provided update and discussed goals of care including considering comfort care. Relayed rest of family's preference with Bony reporting being in agreement with comfort care. Educated on comfort care philosophy with V/U made by Bony. Placed comfort care order, comfort care order set, and D/C maintenance medications per V/O from Dr Osborn. Offered continued supportive visit for family and answered questions. Palliative Care will remain available for symptom management and supportive visits.
--- NOTE | 2022-01-23 10:59 | NUR ---
FAMILY AT BEDSIDE AFTER EXTENSIVE CONVERSATION WITH PT'S FAMILY. PALLIATIVE CARE NURSE CALLED PT'S . COMFORT CARE ORDERS NOW IN PLACE. DISCUSSED COMFORT CARE ORDERS WITH PT'S FAMILY. ASKED ABOUT DORAN VS PUREWICK. FAMILY ASKED TO LEAVE PUREWICK FOR NOW AND TO HOLD OFF ON DORAN UNLESS PT APPEARS UNCOMFORTABLE. MEDICATED WITH HALDOL AND MORPHINE SO FAR
--- NOTE | 2022-01-23 12:53 | NUR ---
regrinder operator at bedside per family request
--- NOTE | 2022-01-23 13:05 | NUR ---
Spiritual care visit conducted. Pt is lying in bed and minimally responsive. Sisters, Radha and Nilsa and dtr, Mini, are bedside. I conduct a life review of pt's life and learn of the addiction, emotional pain and mental anguish the pt has lived with for decades. I also gain an understanding of how the pt's life and struggles has effected the lives of those in the and many others. We talk about pt's and the family's Catholic belief system and that because their pola they believe they were all able to come out of that life style and create strong and meaningful lives. We talk about the decision to change pt's status to Comfort care and the love, mercy and wisdom that surrounds that choice. We talk about their beliefs about dying and the afterlife. I normalize their feelings, affirm their choices for pt's medical plan of care, and provide therpaeutic listeing, anticipatory grief support, theological insights, genle residential substance abuse counselor and prayer. Family respond well and show signs of being comforted. I will continue to remain available.
[2022-01-23 16:53] LABS: Source, Urine Foley catheter
[2022-01-23 17:03] LABS: Appearance, Urine Hazy (Clear); Bilirubin, Urine Neg (Neg); Blood, Urine 5+ (Neg); Color, Urine Yellow (P-Yellow); Glucose Qualitative, Urine Neg (Neg); Ketones, Urine 1+ (Neg); Leukocyte Esterase, Urine 1+ (Neg); Nitrite, Urine Neg (Neg); Protein, Urine 2+ (Neg); Urobilinogen, Urine NORM (Normal)
[2022-01-23 17:20] LABS: Amorphous Light (0-Heavy); Granular Casts 0-2 /lpf (0); Hyaline Casts 0-2 /lpf (0-2); Red Blood Cells, Urine 25-50 /hpf (0-2)
[2022-01-23 17:21] LABS: Bacteria Many /hpf; Renal Epithelial Rare /hpf (0-Rare); Squamous Epithelial Cells Rare /hpf (Few)
--- NOTE | 2022-01-23 17:32 | NUR ---
SHIFT SUMMARY: FAMILY DECIDED TO MAKE PT COMFORT CARE STATUS DUE TO PT'S NEURO STATUS LIKELY BEING CHRONIC NOW. PT REQUIRED SEVERAL MEDICATIONS TO REACH COMFORT LEVEL WITHOUT MOANING. DORAN PLACED DUE TO PT PRODUCING LARGE AMOUNT OF URINE WITH PUREWICK IN PLACE AND VERY AGITATED WITH REPOSITIONING AND CLEANING. LARGE AMOUNT OF URINE DRAINED FROM DORAN WELL. PT APPEARS COMFORTABLE AT THIS TIME.
--- NOTE | 2022-01-23 18:41 | NUR ---
REPORT GIVEN TO PAULINE FRAZIER. PT TRANSFERRED TO ROOM 327 VIA BED. CALL TO PT'S DAUGHTER JORGE TO RELAY NEW ROOM NUMBER. JORGE STATES SHE WILL LET THE REST OF THE FAMILY KNOW. PT APPEARED COMFORTABLE AT TIME OF TRANSFER.
--- NOTE | 2022-01-23 23:24 | NUR ---
COMFORT ASSESS PT NOT RESPONDING TO MORPHINE OR ROXANOL. STILL CALLING OUT. I HAVE JUST ADMINISTERED ATIVAN PO SOLUTION FROM PHARMACY. WILL MONITOR FOR EFFECTIVENESS.
--- NOTE | 2022-01-24 04:26 | NUR ---
SHIFT SUMMARY ADMITTED FOR UTI/SEPSIS. DNR CODE. COMFORT CARE. DORAN IN PLACE. POWERGLIDE IN RUE, PERIPHERAL IV IN RLE. PRN PAIN AND ANXIETY MEDS GIVEN. PT CALLS OUT FREQUENTLY. ON RA. HX OF METH+. REPOSITIONED Q 2 HRS. Q2 COMFORT ASSESSMENTS.
--- NOTE | 2022-01-24 12:07 | NUR ---
NURSE NOTE. PATIENT HAS BEEN MEDICATED FOR PAIN, ANXIETY, AIR HUNGER. MEDICATED PER EMAR. PATIENT HAS BEEN TURNED FREQUENTLY. FAMILY OF PAIENT REQUESTS THAT PATIENT NOT BE TURNED OR MOVED. FAMILY STATES THAT PATIENT APPEARS COMFORTABLE AND FAMILY STATES NO NEEDS AT THIS TIME. WILL MONITOR
--- NOTE | 2022-01-24 21:59 | NUR ---
PT AT 2039 WITH , KAYLEY, PRESENT.
== END 2022-01-24 20:40 | DRG 871 ==
LOC: ER 12:08 → PCU 16:04 → EOR 16:04 → PCU 17:47 → MEDS 01-23 18:24
PROVIDERS: Emergency Medicine; Family Medicine; Internal Medicine; Nurse Practitioner Acute Care; Student in an Organized Health Care Education/Training Program; ADMIT Internal Medicine
PROC: 3E03329 Introduction of Other Anti-infective into Peripheral Vein, Percutaneous Approach (ICD-10-PCS; principal; 2022-01-19)
PROC: 5A09457 Assistance with Respiratory Ventilation, 24-96 Consecutive Hours, Continuous Positive Airway Pressure (ICD-10-PCS; 2022-01-19)
DX: A41.01 Sepsis due to Methicillin susceptible Staphylococcus aureus (principal); G92.8 Other toxic encephalopathy; J18.9 Pneumonia, unspecified organism; J96.02 Acute respiratory failure with hypercapnia; E87.0 Hyperosmolality and hypernatremia; E87.2 Acidosis; N39.0 Urinary tract infection, site not specified; N17.9 Acute kidney failure, unspecified; M00.012 Staphylococcal arthritis, left shoulder; M62.82 Rhabdomyolysis; D61.818 Other pancytopenia; J44.0 Chronic obstructive pulmonary disease with (acute) lower respiratory infection; Z20.822 Contact with and (suspected) exposure to COVID-19; R65.20 Severe sepsis without septic shock; T43.621A Poisoning by amphetamines, accidental (unintentional), initial encounter; Z51.5 Encounter for palliative care; E87.6 Hypokalemia; F15.10 Other stimulant abuse, uncomplicated; Z66 Do not resuscitate; Z88.0 Allergy status to penicillin; F41.9 Anxiety disorder, unspecified; M25.48 Effusion, other site; E86.0 Dehydration; F32.9 Major depressive disorder, single episode, unspecified; G89.4 Chronic pain syndrome; I49.3 Ventricular premature depolarization; I27.20 Pulmonary hypertension, unspecified; B95.61 Methicillin susceptible Staphylococcus aureus infection as the cause of diseases classified elsewhere; D69.6 Thrombocytopenia, unspecified; N80.9 Endometriosis, unspecified; E88.09 Other disorders of plasma-protein metabolism, not elsewhere classified; A41.51 Sepsis due to Escherichia coli [E. coli]
CPT/HCPCS: 0241U; 36415; 36416; 36600; 51703; 70450; 71045; 71046; 71260; 72125; 80048; 80053; 80202; 81001; 82330; 82550; 82553; 82803; 83605; 83735; 84295; 84484; 85025; 87040; 87077; 87086; 87186; 93005; 93010; 93306; 94660; 94760; 94762; 96374; 96375; 99285-25; A9270; C1751; G0480; J0456; J0610; J0690; J0696; J1630; J1644; J2270; J3370; J3475; J3480; J7030; J7040; J7050; J7060; J7070; P9047; Q9967